=== PATIENT | female | born 1955 | race Caucasian/White ===

== ENCOUNTER → 2017-12-08 | Day surgery (SDC) | payer BC ==
[2017-12-03 12:51] VITALS: BMI 28.4
[~2017-12-08] MED LIST: ALPRAZolam 0.25 MG TAB PO PRN; ALPRAZolam 0.5 MG TAB PO PRN; ASPIRIN 325 MG TAB PO STA; ASPIRIN 81 MG PO SCH; ATORVASTATIN 80 MG TAB PO SCH; ATORVASTATIN 80 MG TAB PO STA; CHOLECALCIFEROL 1,000 UNIT TAB PO SCH; HEPARIN SODIUM 1,000 UN/ML (10ML VL) IV ONE; HEPARIN SODIUM 1,000 UN/ML (10ML VL) ONE; IOHEXOL 350 MG/ML 125ML BOTTLE INJ ONE; LIDOCAINE 2% INJ 20 MG/ML (20 ML MDV) ONE; LIDOCAINE 2% INJ 20 MG/ML SQ ONE; LOSARTAN-HCTZ 50-12.5 MG 1 EACH TAB PO SCH; NITROGLYCERIN 1000MCG/10ML SYRINGE INTRACORON ONE; NITROGLYCERIN SL TABS 0.4 MG TAB SUBLINGUAL PRN; NON-FORMULARY DRUG (Ubidecarenone [Co Q-10] 400 MG) PO SCH; RX INFO: IV CONTRAST WAS GIVEN 1 EACH MISC MISCELLANE PRN; SODIUM CHLORIDE 0.9% 1,000 ML IV SCH; SODIUM CHLORIDE 0.9% 1,000 ML in EMPTY BAG 1 BAG IV ONE; VERAPAMIL 2.5 MG/ML 2 ML AMP ONE; VERAPAMIL SYRINGE (5 MG/10 ML) INTRAARTER ONE; VITAMIN E (DL,TOCOPHERYL ACET) 400 UNIT CAP PO SCH; diphenhydrAMINE 50 MG/ML 1 ML VIAL IVP ONE; diphenhydrAMINE 50 MG/ML 1 ML VIAL ONE; fentaNYL (PF) 50 MCG/ML 2 ML AMP IV ONE; fentaNYL (PF) 50 MCG/ML 2 ML AMP ONE
[2017-12-08 07:18] LABS: Basophils # (A) 0.1 k/uL (0-0.2); Basophils % (A) 1 %; Eosinophils # (A) 0.3 k/uL (0-0.7); Eosinophils % (A) 6 %; HCT 42.3 % (34.0-46.0); Lymphocytes % (A) 34 %; MCHC 33.2 g/dL (31.0-37.0); MCV 87.3 fL (80.0-100.0); Monocytes # (A) 0.3 k/uL (0-1.0); Monocytes % (A) 5 %; Neutrophils % (A) 52 %; Platelet Count 201 k/uL (150-450); RBC 4.84 m/uL (3.80-5.40); RDW 12.5 % (11.5-15.5); WBC 5.8 k/uL (3.8-10.6)
[2017-12-08 07:19] VITALS: RESP 18
[2017-12-08 07:35] LABS: Potassium 3.8 mmol/L (3.5-5.1)
--- NOTE | 2017-12-08 08:29 | CC ---
CARDIAC CATHETERIZATION REPORT Ms. Vasquez is a 62-year-old female with a known history of coronary artery disease, history of hypertension, hyperlipidemia and a family history of coronary artery disease, who presented with symptoms of progressive chest discomfort radiating to the neck and dyspnea on exertion. In view of that, recommendation made regarding cardiac catheterization. The procedures, risks and complications were discussed with the patient who is in full understanding and agreement. PROCEDURE: Patient was brought to [facility] in a fasting semi-sedated state after receiving fentanyl and Benadryl and achieving moderate conscious sedated state. Using Xylocaine anesthesia and Seldinger technique, a 6-Congolese sheath was introduced in the right radial artery. Selective right and left coronary angiography performed using 5-Congolese 3.5 bend right and left Satnam catheter, multiple views of the coronary artery including hemiaxial were obtained. Following that, a 5-Congolese tight pigtail catheter was introduced into the left ventricle and a 30 degree VILLALOBOS view of the left ventricle was obtained. Following that, the catheter and sheath were removed. Hemostasis was obtained with deployment of a TR band. There was no immediate complication. Patient is returned to room in stable condition. Of note, the patient received 4500 units of intravenous heparin as well as intra-arterial verapamil. FINDINGS: 1. LEFT MAIN: This is a short-size vessel, bifurcating into left circumflex, left anterior descending artery, left main coronary artery is without any significant obstructive coronary artery disease. 2. LEFT ANTERIOR DESCENDING ARTERY: This is a large-sized vessel, reaching toward the apex with a wraparound apex segment, giving rise to three diagonal branches. The first and the third one are large in caliber. The left anterior descending artery proximally is mildly calcified. The mid-segment has a 30% to 40% plaque. The rest of the vessel has no high-grade stenosis. 3. LEFT CIRCUMFLEX: This is a nondominant vessel giving rise to two obtuse marginal branches. The second one is distal and larger. The left circumflex in mid-segment has intimal disease of 20% to 30% without any evidence of high-grade stenosis. 4. RIGHT CORONARY ARTERY: This is a dominant vessel, large in caliber, bifurcating distally into PDA and posterolateral segment and branches. The right coronary artery in the mid-segment has a 20% to 30% plaque. The rest of the vessel has no high-grade stenosis. 5. LEFT VENTRICULOGRAM: Left ventriculogram was performed in 30 degree VILLALOBOS view and revealed normal left ventricular size and systolic function, ejection fraction is 60%. There was no significant mitral regurgitation. 6. HEMODYNAMICS: There was no gradient across the aortic valve. The left ventricular end-diastolic pressure was 16 mmHg. CONCLUSION: 1. Mild to moderate triple-vessel coronary artery disease. 2. Normal left ventricular size and systolic function. RECOMMENDATION: In view of finding anatomy, I would recommend to continue medical therapy with aggressive risk-factor modifications being initiated. Those findings and recommendation were discussed with the patient and her family who are in fully understanding and agreement. DURATION OF THE PROCEDURE: 26 minutes. MMODL / IJN: [id number] /
--- NOTE | 2017-12-08 08:35 | LTR ---
DATE OF SERVICE: 12/08/2016 RE: PedroJaja bassett Dear Dr. Nguyen, I had the pleasure to perform cardiac catheterization on Mrs. Vasquez at [facility] on the 08 of December and a full copy of the procedure note will be forwarded to you. In brief, she was found to have [id number] coronary artery disease without any progression compared with the images obtained in 2014 and based on those findings, I would recommend to continue medical therapy with aggressive risk-factor modifications that she had initiated. Thank you again for allowing me to participate in this patient's care. Please feel free to call for any questions. Sincerely yours, MD LEE ANN Snell / MIRIAMN: [id number] /
[2017-12-08 08:55] VITALS: TEMP 97.6
[2017-12-08 13:56] VITALS: BP 121/67; PULSE 62
== END | disposition home or self-care (01) ==
LOC: CATHCVL 06:33
PROVIDERS: ATTEND Internal Medicine Interventional Cardiology
DX: I25.110 Atherosclerotic heart disease of native coronary artery with unstable angina pectoris (principal); I25.84 Coronary atherosclerosis due to calcified coronary lesion; I10 Essential (primary) hypertension; E78.2 Mixed hyperlipidemia; Z79.82 Long term (current) use of aspirin; Z79.899 Other long term (current) drug therapy; Z88.5 Allergy status to narcotic agent
CPT/HCPCS: 93458; 80051; 85025; C1894; C1769 ×2; J2001; J1200; J3010; J1644; Q9967

== ENCOUNTER → 2018-04-01 | Outpatient (CLI) | payer BC ==
--- NOTE | 2018-04-01 07:54 | MR ---
EXAMINATION TYPE: MR shoulder LT wo con DATE OF EXAM: 04/01/2018 COMPARISON: Outside left shoulder x-ray March 13, 2018 HISTORY: Pain in left shoulder per order. Pain with difficulty raising overhead for 6 months per zack ent. TECHNIQUE: Multiplanar, multisequence imaging of the left shoulder is performed without contrast. FINDINGS: Rotator Cuff: Supraspinatus and infraspinatus tendons are grossly intact to humeral head attachment. Subscapularis tendon appears intact. Acromioclavicular Joint: There is type II downsloping acromion. There is narrowing at acromioclavicul ar joint. Inferior fat plane however is maintained. Glenohumeral Joint: There is small joint effusion. No significant spurring is seen. Labrum: The labrum appears grossly intact given limitation of non-arthrogram study. Biceps Tendon: The long head of biceps is in normal location within bicipital groove. Bone marrow signal: No focal abnormal marrow signal is appreciated. Other: Mild to moderate fluid signal subdeltoid/subacromial bursa is noted. IMPRESSION: No rotator cuff or labral tear is seen. Type II downsloping acromion may be causing some underlying impingement with mild to moderate subdeltoid/subacromial bursitis present.
== END ==
LOC: RADMRIMAIN 07:06
PROVIDERS: ATTEND Orthopaedic Surgery
DX: M25.512 Pain in left shoulder (principal)

== ENCOUNTER → 2018-07-07 | Outpatient (CLI) | payer BC ==
[2018-07-07 09:57] LABS: Basophils # (A) 0.1 k/uL (0-0.2); Basophils % (A) 1 %; Eosinophils # (A) 0.4 k/uL (0-0.7); Eosinophils % (A) 6 %; HCT 45.1 % (34.0-46.0); Lymphocytes # (A) 1.7 k/uL (1.0-4.8); Lymphocytes % (A) 29 %; MCH 30.3 pg (25.0-35.0); MCHC 33.3 g/dL (31.0-37.0); MCV 90.9 fL (80.0-100.0); Monocytes # (A) 0.3 k/uL (0-1.0); Monocytes % (A) 4 %; Neutrophils # (A) 3.4 k/uL (1.3-7.7); Neutrophils % (A) 57 %; Platelet Count 205 k/uL (150-450); RBC 4.96 m/uL (3.80-5.40); RDW 12.9 % (11.5-15.5); WBC 5.9 k/uL (3.8-10.6)
[2018-07-07 10:24] LABS: Potassium 4.4 mmol/L (3.5-5.1)
== END ==
LOC: LABPAT 09:11
PROVIDERS: ATTEND Orthopaedic Surgery
DX: Z01.818 Encounter for other preprocedural examination (principal); Z01.812 Encounter for preprocedural laboratory examination; M77.52 Other enthesopathy of left foot and ankle
CPT/HCPCS: 80051; 85025; 93005

== ENCOUNTER → 2018-07-22 | Day surgery (SDC) | payer BC ==
[2018-07-16 11:54] VITALS: BMI 25.4
--- NOTE | 2018-07-21 14:56 | HP ---
HISTORY AND PHYSICAL DATE OF SERVICE: 07/22/2018 Jaja Vasquez is a 63-year-old patient seen with progressive left shoulder pain. Treatment options were discussed with post left shoulder arthroscopy. Consent was obtained her. PAST MEDICAL HISTORY: Asthma, hypercholesterolemia, hypertension. PAST SURGICAL HISTORY: Colonoscopy, foot surgery, hysterectomy. MEDICATIONS: Crestor, losartan, Ventolin inhaler, Breo Ellipta inhaler. ALLERGIES: None reported. SOCIAL HISTORY: Patient denies current tobacco use. PHYSICAL EVALUATION OF THE LEFT SHOULDER: Flexion is 150 degrees, abduction is 130 degrees, external rotation is 50 degrees with weakness. There is tenderness along the anterior lateral acromion rotator cuff insertion site. Impingement sign is positive at 90 degrees. Distal neurovascular exam is intact. RADIOGRAPHS OF THE LEFT SHOULDER: Revealed a type 2 anterior acromion, acromioclavicular joint osteoarthritis and cystic changes of the tuberosity. The left shoulder MRI revealed impingement as well as bursitis. IMPRESSION: 1. Left shoulder impingement with possible rotator cuff tear. 2. Left shoulder acromioclavicular joint osteoarthritis. PLAN: Left shoulder arthroscopy with subacromial decompression, possible arthroscopic rotator cuff repair, possible Dominic procedure and debridement. MMODL / IJN: [id number] /
[~2018-07-22] MED LIST changes: -ALPRAZolam 0.25 MG TAB PO PRN; -ALPRAZolam 0.5 MG TAB PO PRN; -ASPIRIN 325 MG TAB PO STA; -ASPIRIN 81 MG PO SCH; -ATORVASTATIN 80 MG TAB PO SCH; -ATORVASTATIN 80 MG TAB PO STA; -CHOLECALCIFEROL 1,000 UNIT TAB PO SCH; +CITRIC ACID-SODIUM CITRATE 15 ML CUP PO ONE; +DEXAMETHASONE SOD PHOSPHATE 10 MG/ML 1 ML VIAL IV ONE; +GLYCOPYRROLATE 0.2 MG/ML 2 ML VIAL ONE; -HEPARIN SODIUM 1,000 UN/ML (10ML VL) IV ONE; -HEPARIN SODIUM 1,000 UN/ML (10ML VL) ONE; -IOHEXOL 350 MG/ML 125ML BOTTLE INJ ONE; +LACTATED RINGERS 1,000 ML IV ONE; +LACTATED RINGERS 1,000 ML IV SCH; +LIDOCAINE 1% 20 ML VIAL (10MG/ML) FOR IV START INTRADERMA ONE; +LIDOCAINE 1% INJ 10MG/ML (20 ML MDV) ONE; -LIDOCAINE 2% INJ 20 MG/ML (20 ML MDV) ONE; -LIDOCAINE 2% INJ 20 MG/ML SQ ONE; -LOSARTAN-HCTZ 50-12.5 MG 1 EACH TAB PO SCH; +MIDAZOLAM 2 MG/2 ML VIAL IV PRN; +MIDAZOLAM 2 MG/2 ML VIAL ONE; +NEOSTIGMINE 1 MG/ML 10 ML VIAL ONE; -NITROGLYCERIN 1000MCG/10ML SYRINGE INTRACORON ONE; -NITROGLYCERIN SL TABS 0.4 MG TAB SUBLINGUAL PRN; -NON-FORMULARY DRUG (Ubidecarenone [Co Q-10] 400 MG) PO SCH; +ONDANSETRON 4 MG/2 ML VIAL IVP ONE; +ONDANSETRON 4 MG/2 ML VIAL IVP PRN; +PROPOFOL 10 MG/ML 20 ML VIAL IV ONE; +ROCURONIUM BROMIDE 10 MG/ML 10 ML VIAL IV ONE; +ROPIVACAINE 5 MG/ML 30 ML VIAL ONE; -RX INFO: IV CONTRAST WAS GIVEN 1 EACH MISC MISCELLANE PRN; -SODIUM CHLORIDE 0.9% 1,000 ML IV SCH; -SODIUM CHLORIDE 0.9% 1,000 ML in EMPTY BAG 1 BAG IV ONE; -VERAPAMIL 2.5 MG/ML 2 ML AMP ONE; -VERAPAMIL SYRINGE (5 MG/10 ML) INTRAARTER ONE; -VITAMIN E (DL,TOCOPHERYL ACET) 400 UNIT CAP PO SCH; +ceFAZolin IN SWFI 2 GM/20 ML SYRINGE IVP ONE; -diphenhydrAMINE 50 MG/ML 1 ML VIAL IVP ONE; -diphenhydrAMINE 50 MG/ML 1 ML VIAL ONE; -fentaNYL (PF) 50 MCG/ML 2 ML AMP IV ONE; +fentaNYL (PF) 50 MCG/ML 2 ML AMP IV PRN
--- NOTE | 2018-07-22 10:55 | P.ONQ ---
Anesthesiology Proc Note - PNB - Peripheral Nerve Block Performed Left Interscalene Single Time Out Performed: Yes Procedure Start Time: :30 Procedure Stop Time: :45 Indication: Acute Post-Operative Pain, Requested by physician Sedation Type: Sedate with meaningful contact maintained Preparation: Sterile Prep Position: Supine Catheter: None Needle Size: 50mm (2") Needle Gauge: 21 Technique: Ultrasound Injectate: 0.5% Ropivacaine (see comment for volume) Blood Aspirated: No Pain Paresthesia on Injection Noted: No Resistance on Injection: Normal Events: Uneventful and Well Tolerated (Ropivicaine 0.5% solution totalling 30ml with frequent aspiration. Uneventful)
[2018-07-22 11:57] VITALS: RESP 16; TEMP 97.1
--- NOTE | 2018-07-22 11:59 | P.OP ---
Date of Procedure: 07/22/18 Preoperative Diagnosis: Left shoulder impingement Postoperative Diagnosis: 1. Left shoulder rotator cuff tear 2. Left shoulder impingement 3. Left shoulder partial long head biceps tendon tear 4. Left shoulder labral tear Procedure(s) Performed: 1. Left shoulder arthroscopic rotator cuff repair 2. Left shoulder arthroscopic subacromial decompression 3. Left shoulder arthroscopic biceps tenotomy 4. Left shoulder arthroscopic debridement labral tear Implants: 15.5 Arthrex swivel lock anchor Anesthesia: GETA, regional (Interscalene block) Surgeon: Tony Doan Yarn Inspector #1: Mike Dailey Estimated Blood Loss (ml): 10 Pathology: none sent Condition: stable Disposition: PACU Indications for Procedure: 63-year-old patient seen with progressive left shoulder pain. After having treatment options discussed, she elected to proceed with arthroscopy. Operative Findings: See description of procedure Description of Procedure: Patient underwent an interscalene block by department of anesthesia for postoperative pain control. The patient was then taken to the operative suite. The patient underwent a general anesthetic by the department of anesthesia. The patient was placed into a lateral position and secured. There was appropriate padding of the bony prominence. Left shoulder was then prepped and draped in normal sterile orthopedic fashion. We placed the extremity in 10 pounds of longitudinal traction. A posterior incision was now made for a posterior working portal site. The trocar and cannula were inserted into the glenohumeral joint. Arthroscopy was initiated. Spinal needle was now inserted anteriorly, to ascertain the anterior working portal site. An incision was now made in that area, a trocar was inserted followed by a probe. There was superficial tearing noted at the superior and anterior labrum. There was partial tearing and hyperemia of the long head biceps tendon. There were mild grade 1 chondromalacia changes with no osteochondral tears present. No loose bodies were identified. I performed an arthroscopic biceps tenotomy. I debrided the superficial labral tears down to stable tissue. Residual labrum was found to be stable. The superior anchor was stable. Instruments now removed from the glenohumeral joint. Utilizing the posterior working portal site, the trocar and cannula were inserted into the subacromial space. Arthroscopy initiated. I made an incision 2 fingerbreadths lateral to the acromion. I introduced my trocar followed by my ArthroCare ablator. I now began ablating thick subacromial bursal tissue, which exposed the undersurface of the anterior acromion. There was diminished subacromial space. There was a very prominent anterior acromion. A motorized bur was introduced and a subacromial decompression was performed. I also excised some osteophytes off the inferior aspect of the distal clavicle. The AC joint was visualized and noted to be moderately arthritic. I did not feel it was enough to necessitate a Dominic procedure. I now turned my attention to the rotator cuff tendon. There was significant fraying noted along the posterior aspect distal super SMAS. Upon thorough probing off on an through and through perforation. I debrided the edges getting down to stable tendon tissue. We had a 1.5 cm defect or tear. I abraded the footprint with a motorized bur. I passed 3 everted mattress sutures through good bites of rotator cuff tendon. I now held the punch in the appropriate position along the footprint area and Eliud RAY tapped down with a mallet. All 6 limbs of suture were now passed through a 5.5 Arthrex anchor. The Arthrex anchor was now introduced into the tip of the prepunched hole. Eliud RAY tension all the appropriate sutures while I held the camera and anchor in position. He then introduced and anchor into our pre-punch hole while the camera and anchor sleeve in position. There appeared to be good compression of the tendon on the footprint. Suture limbs were clipped. The repair was probed and found to be stable. I injected 1 mL Renue intra-articular. All instruments were now removed from the portal sites. All portal sites were approximated with nylon suture. Sterile dressings were applied followed by a shoulder sling. Mike RAY assisted in this complex case. The patient was awakened, transferred to a bed, and taken to recovery in stable condition.
[2018-07-22 13:01] VITALS: BP 124/58; PULSE 70
== END | disposition home or self-care (01) ==
LOC: OR 07:34
PROVIDERS: ATTEND Orthopaedic Surgery
DX: M75.102 Unspecified rotator cuff tear or rupture of left shoulder, not specified as traumatic (principal); M75.42 Impingement syndrome of left shoulder; S46.112A Strain of muscle, fascia and tendon of long head of biceps, left arm, initial encounter; S43.432A Superior glenoid labrum lesion of left shoulder, initial encounter; X58.XXXA Exposure to other specified factors, initial encounter; M94.212 Chondromalacia, left shoulder; J45.909 Unspecified asthma, uncomplicated; E78.00 Pure hypercholesterolemia, unspecified; I10 Essential (primary) hypertension; Z79.82 Long term (current) use of aspirin; Z79.899 Other long term (current) drug therapy; Z88.5 Allergy status to narcotic agent
CPT/HCPCS: 64415; 29826; 29827; C1713; C1765; J2250; J1100; J2710; J2405; J2001; J3010; J2795; J2704; J0690

== ENCOUNTER → 2019-09-01 | Outpatient (CLI) | payer MEDICARE ==
[2019-09-01 14:24] LABS: African American GFR (CKD) >90 (>60 ml/min/1.73 sqM); Blood Urea Nitrogen 28 mg/dL (7-17)
--- NOTE | 2019-09-01 15:35 | CT ---
EXAMINATION TYPE: CT urogram wo/w con DATE OF EXAM: 09/01/2019 HISTORY: incontinence, microscopic hematuria CT DLP: 2080.6mGycm Automated Exposure Control for Dose Reduction was Utilized. CONTRAST: CT scan of the abdomen and pelvis is performed without and with IV Contrast, patient injected with 10 0 mL of Isovue 300. COMPARISON: None FINDINGS: There is a small hiatal hernia present. LUNG BASES: No significant abnormality is appreciated. LIVER/GB: Liver shows low attenuation and is borderline enlarged, gallbladder is normal PANCREAS: No significant abnormality is seen. SPLEEN: No significant abnormality is seen. ADRENALS: No significant abnormality is seen. KIDNEYS: There are cortical cysts associated with the kidneys. Punctate calcifications are present at the lower pole the left kidney, there may be some localized scarring at this level, focal cortical d efect is present. The ureters show normal course and caliber. BOWEL: No significant abnormality is seen. UTERUS/ADNEXA: Uterus and adnexal structures are not seen. LYMPH NODES: No greater than 1cm abdominal or pelvic lymph nodes are appreciated. OSSEOUS STRUCTURES: No significant abnormality is seen. OTHER: No significant additional abnormality is seen. IMPRESSION: Suspect some scarring at the lower pole left kidney, punctate calcifications could repres ent nonobstructive calculi, there are bilateral cortical cysts. Hepatomegaly, hepatic steatosis.
== END | disposition home or self-care (01) ==
LOC: RADCTMAIN 13:46
PROVIDERS: ATTEND Urology
DX: K76.0 Fatty (change of) liver, not elsewhere classified (principal); R31.0 Gross hematuria
CPT/HCPCS: 82565; 84520; 74178; 36415; 74400; Q9967

== ENCOUNTER 2023-05-02 12:39 | Day surgery (SDC) | payer MEDICARE ==
[2023-05-01 10:18] VITALS: BMI 30.4
[2023-05-02] MEDS ORDERED: LACTATED RINGERS 1,000 ML IV SCH (13:14)
[2023-05-02 13:39] VITALS: TEMP 97
[2023-05-02] MEDS ORDERED: PROPOFOL 10 MG/ML 20 ML VIAL IV ONE (14:44)
--- NOTE | 2023-05-02 15:07 | P.PCN ---
Date of Procedure: 05/02/23 Procedure(s) Performed: BRIEF HISTORY: Patient is a 68-year-old pleasant white female scheduled for an elective colonoscopy as a part of evaluation of right lower quadrant abdominal pain for the last 7 months duration. PROCEDURE PERFORMED: Colonoscopy. PREOPERATIVE DIAGNOSIS: Right lower quadrant abdominal pain of several months duration. IV sedation per Anesthesia. PROCEDURE: After informed consent was obtained, the patient, was brought into the endoscopy unit. IV sedation was administered by Anesthesia under continuous monitoring. Digital rectal examination was normal. Initially the Olympus CF-160 flexible video colonoscope was then inserted in the rectum, gradually advanced into the cecum without any difficulty. Careful examination was performed as the scope was gradually being withdrawn. Ileocecal valve and the appendiceal orifice were visualized and appeared normal. Prep was excellent. Mucosa of the cecum, ascending colon, transverse colon, descending colon, sigmoid colon, and rectum appeared normal. Retroflexion was performed in the rectum and no lesions were seen. The patient tolerated the procedure well. IMPRESSION: Normal-appearing colon from rectum to cecum no evidence of colorectal neoplasia. RECOMMENDATIONS: Findings of this examination were discussed with the patient as well as a family. She was advised to have a repeat screening colonoscopy in 10 years..
[2023-05-02 15:12] VITALS: RESP 15
[2023-05-02 15:34] VITALS: BP 146/79; PULSE 55
== END 2023-05-02 16:05 | disposition home or self-care (01) ==
LOC: ORWHC2ENDO 12:39
PROVIDERS: ATTEND Internal Medicine Gastroenterology
DX: R10.31 Right lower quadrant pain (principal); I10 Essential (primary) hypertension; E78.5 Hyperlipidemia, unspecified; J45.909 Unspecified asthma, uncomplicated; K21.9 Gastro-esophageal reflux disease without esophagitis; Z79.82 Long term (current) use of aspirin; Z79.899 Other long term (current) drug therapy
CPT/HCPCS: 45378; J2704

== ENCOUNTER → 2023-05-12 | Outpatient (CLI) | payer MEDICARE ==
--- NOTE | 2023-05-17 08:54 | MR ---
EXAMINATION TYPE: MR knee LT wo con DATE OF EXAM: 05/12/2023 COMPARISON: None HISTORY: Sudden onset left knee pain, started 2 mos ago. TECHNIQUE: Multiplanar, multisequence imaging of the knee is performed without IV contrast. Findings: There is no bone contusion or fracture. There is mild to moderate osteoarthritic change of the medial and lateral compartment knee were there is mild thinning of the articular cartilages and mild marginal hypertrophic spurring. There are mild subchondral cysts in the medial aspect of the tibial plateau and in the medial femoral condyle. There is a tear of the posterior horn medial meniscus and a small meniscal cyst. Stsqp-dh-[id number] joint effusion there is a multiloculated small Bowles's cyst. The medial and lateral collateral ligaments and cruciate ligaments are intact. IMPRESSION: 1. Tear of the posterior horn meniscus with a small meniscal cyst. 2. Xxfp-ap-xrlnivar joint effusion and multilocular Bowles's cyst. 3. Mild to moderate osteoarthritic change of the medial lateral compartment of the knee. 4. No ligamentous injury.
== END | disposition home or self-care (01) ==
LOC: RADMRIMAIN 10:49
PROVIDERS: ATTEND Orthopaedic Surgery
DX: S83.242A Other tear of medial meniscus, current injury, left knee, initial encounter (principal); M17.12 Unilateral primary osteoarthritis, left knee; M71.22 Synovial cyst of popliteal space [Baker], left knee; M25.462 Effusion, left knee; X58.XXXA Exposure to other specified factors, initial encounter

== ENCOUNTER → 2023-05-23 | Outpatient (CLI) | payer MEDICARE ==
[2023-05-23 16:11] LABS: Basophils # (A) 0.06 X 10*3/uL (0.00-0.10); Basophils % (A) 1.1 %; Eosinophils # (A) 0.26 X 10*3/uL (0.04-0.35); Eosinophils % (A) 4.7 %; HCT 42.9 % (37.2-46.3); Lymphocytes # (A) 1.69 X 10*3/uL (0.90-5.00); Lymphocytes % (A) 30.4 %; MCH 29.4 pg (27.0-32.0); MCHC 32.6 d/dL (32.0-37.0); MCV 89.9 FL (80.0-97.0); Mean Platelet Volume 10.4 FL (9.5-12.2); Monocytes # (A) 0.42 X 10*3/uL (0.20-1.00); Monocytes % (A) 7.6 %; NRBC Per 100 WBC 0 X 10*3/uL (0.00-0.01); Neutrophils # (A) 3.11 X 10*3/uL (1.80-7.70); Neutrophils % (A) 55.8 %; Platelet Count 190 X 10*3/uL (140-440); RBC 4.77 X 10*6/uL (4.10-5.20); RDW 12.9 % (11.5-14.5); WBC 5.56 X 10*3/uL (4.50-10.00)
[2023-05-23 17:16] LABS: Anion Gap 11.4 mmol/L (4.00-12.00); Carbon Dioxide 25.6 mmol/L (21.6-31.8); Potassium 4.1 mmol/L (3.5-5.5)
[2023-05-25 20:26] LABS: ALT 26 U/L (8-44); AST 29 U/L (13-35); Chol/HDL Ratio 3.15 Ratio; LDL Cholesterol,Calculated 104.5 mg/dL (0.0-131.0)
== END | disposition home or self-care (01) ==
LOC: LABWHC1 09:46
PROVIDERS: ATTEND Orthopaedic Surgery
DX: Z01.812 Encounter for preprocedural laboratory examination (principal); M23.92 Unspecified internal derangement of left knee; R00.1 Bradycardia, unspecified; R94.31 Abnormal electrocardiogram [ECG] [EKG]
CPT/HCPCS: 36415; 80051; 80061; 84450; 84460; 85025; 93005

== ENCOUNTER 2023-06-12 08:46 | Day surgery (SDC) | payer MEDICARE ==
[2023-06-03 14:09] VITALS: BMI 29.2
--- NOTE | 2023-06-12 07:39 | HP ---
HISTORY AND PHYSICAL DATE OF SURGERY: 06/12/2023. HISTORY OF PRESENT ILLNESS: Jaja Vasquez is a 68-year-old patient, seen with progressive left knee pain. We discussed options. She elected to proceed with left knee arthroscopy. Consent was obtained. PAST MEDICAL HISTORY: Hypertension, hyperlipidemia, and asthma. PAST SURGICAL HISTORY: Colonoscopy, foot surgery, and hysterectomy. DAILY MEDICATIONS: 1. Albuterol inhaler. 2. Metoprolol. 3. Omeprazole. 4. Rosuvastatin. 5. Aspirin. ALLERGIES: None. SOCIAL HISTORY: She denies current tobacco use. PHYSICAL EVALUATION OF THE LEFT KNEE: Range of motion is 0 to 130 degrees. Mild effusion. Tenderness, medial joint line. Positive medial Dang's. Ligaments are stable. Hip rotation is without pain. Distal neurovascular exam is intact. IMAGING STUDIES: Radiographs of the left knee revealed some mild osteoarthritic changes. MRI left knee revealed medial meniscal tear, meniscal cyst, effusion, and Bowles cyst. IMPRESSION: 1. Internal derangement of left knee with medial meniscal tear. 2. Hypertension. 3. Hyperlipidemia. 4. Asthma. PLAN: Left knee arthroscopy with partial medial meniscectomy and debridement. MMODL / IJN: [id number] /
[~2023-06-12 08:46] MED LIST changes: -CITRIC ACID-SODIUM CITRATE 15 ML CUP PO ONE; -DEXAMETHASONE SOD PHOSPHATE 10 MG/ML 1 ML VIAL IV ONE; +DEXAMETHASONE SOD PHOSPHATE 4 MG/ML 1 ML VIAL IV ONE; -GLYCOPYRROLATE 0.2 MG/ML 2 ML VIAL ONE; +HYDROmorphone 0.5 MG/0.5 ML SYRINGE IVP PRN; -LACTATED RINGERS 1,000 ML IV ONE; +LIDOCAINE 1% (10MG/ML) FOR IV START INTRADERMA PRN; -LIDOCAINE 1% 20 ML VIAL (10MG/ML) FOR IV START INTRADERMA ONE; -LIDOCAINE 1% INJ 10MG/ML (20 ML MDV) ONE; -MIDAZOLAM 2 MG/2 ML VIAL ONE; -NEOSTIGMINE 1 MG/ML 10 ML VIAL ONE; -ONDANSETRON 4 MG/2 ML VIAL IVP PRN; -PROPOFOL 10 MG/ML 20 ML VIAL IV ONE; -ROCURONIUM BROMIDE 10 MG/ML 10 ML VIAL IV ONE; -ROPIVACAINE 5 MG/ML 30 ML VIAL ONE; -ceFAZolin IN SWFI 2 GM/20 ML SYRINGE IVP ONE; -fentaNYL (PF) 50 MCG/ML 2 ML AMP IV PRN; -fentaNYL (PF) 50 MCG/ML 2 ML AMP ONE
[2023-06-12] MEDS ORDERED: PROPOFOL 10 MG/ML 20 ML VIAL IV ONE (10:03)
[2023-06-12] MEDS ORDERED: LIDOCAINE 2% INJ 20 MG/ML (2 ML VIAL) ONE (10:03)
[2023-06-12] MEDS ORDERED: LIDOCAINE 4% LTA KIT (4 ML) TOPICAL ONE (10:03)
[2023-06-12] MEDS ORDERED: MIDAZOLAM 2 MG/2 ML VIAL ONE (10:03)
[2023-06-12] MEDS ORDERED: SUCCINYLCHOLINE CHLORIDE 200 MG/10 ML VIAL IV ONE (10:03)
[2023-06-12] MEDS ORDERED: KETOROLAC 15 MG/ML 1 ML VIAL ONE (10:03)
[2023-06-12] MEDS ORDERED: ACETAMINOPHEN IV (For NPO) 1,000 MG/100 ML VIAL ONE (10:03)
[2023-06-12] MEDS ORDERED: BUPIVACAINE (PF) 0.25% 10 ML VIAL MISCELLANE ONE ×2 (10:08→10:45)
--- NOTE | 2023-06-12 11:03 | P.OP ---
Date of Procedure: 06/12/23 Preoperative Diagnosis: Internal derangement left knee Postoperative Diagnosis: 1. Tear medial and lateral meniscus left knee 2. 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 Reactive synovitis medial, lateral and suprapatellar compartments left knee 4. Grade 2/3 chondromalacia medial femoral condyle left knee Procedure(s) Performed: 1. Arthroscopic partial medial and lateral meniscectomy left knee 2. Arthroscopic microfracture medial tibial plateau left knee 3. Arthroscopic partial synovectomy medial, lateral and suprapatellar compartments left knee 4. Arthroscopic chondroplasty medial femoral condyle left knee Anesthesia: ROSALIOA, local Surgeon: Tony Doan Estimated Blood Loss (ml): 8 Pathology: none sent Condition: stable Disposition: PACU Indications for Procedure: 68-year-old patient seen with progressive left knee pain. After having sophia tment options discussed, she elected to proceed with arthroscopy. Operative Findings: See description of procedure Description of Procedure: Patient was taken to the operative suite. Patient underwent a general anesthetic by the department of anesthesia. Patient was given preoperative antibiotics. The left lower extremity was placed in a well-padded arthroscopic leg cooper. The left leg was prepped and draped in the normal sterile orthopedic fashion. A lateral parapatellar and suprapatellar incision was made. Trochars were inserted. Arthroscopy was initiated. Suprapatellar pouch revealed diffuse thick reactive synovitis. The patellofemoral joint appeared to articulate congruently. There was grade 1/2 chondromalacia of the patell ofemoral joint without significant osteochondral tears. The scope was guided into the medial gutter. No loose bodies or plica were identified. The scope was then guided into the medial compartment. A medial parapatellar incision was made. Trocar inserted followed by probe. There was a complex tear involving the posterior horn medial meniscus. There were grade 2/3 chondromalacia changes of medial femoral condyle with some osteochondral flap tears. There were grade 3/4 chondromalacia changes of the medial tibial plateau. There was thick reactive synovitis anteriorly. I performed a partial medial meniscectomy getting down to stable meniscal tissue. I performed a chondroplasty of the medial femoral condyle getting down to stable osteochondral tissue. I performed a partial synovectomy decompressing reactive synovitis. I did note an area of exposed bone along the medial tibial plateau measuring just under a centimeter diameter. I introduced a microfracture awl and I performed a microfracture to the area of exposed bone medial tibial plateau penetrating the bone with resultant bleeding at the microfracture site. The residual meniscus was probed and was found to be stable. There was good decompression of the synovitis. The residual osteochondral surface of the femoral condyle and tibial plateau were stable. Scope and probe were then guided into the intercondylar notch. Cruciates were identified, probed and found to be stable. The scope and probe were then guided into lateral compartment. There was a radial tear involving the posterior horn lateral meniscus. There were some grade 2 chondromalacia changes of the lateral compartment without significant osteochondral tears. There was some thick reactive synovitis anteriorly. I performed a partial lateral meniscectomy getting down to stable meniscal tissue. I performed a partial synovectomy decompressing the reactive synovitis. The residual meniscus was probed and was found to be stable. There was good decompression of the synovitis. The scope was in guided back into the suprapatellar compartment. I introduced a motorized shaver into the suprapatellar compartment. I performed a partial synovectomy. The shaver was removed. There was good decompression of the synovitis. I took one more look around the entire knee, no residual debris. Instruments were now removed from the joint. The joint was infiltrated with .25% Marcaine. Steri-Strips were applied to the portal sites. Sterile dressings were applied. The patient was placed into a GIANLUCA hose. No tourniquet was utilized. The patient was awakened, transferred to a bed and taken to recovery stable satisfactory condition.
[2023-06-12 11:11] VITALS: TEMP 96.8
[2023-06-12 12:39] VITALS: BP 151/67; PULSE 61; RESP 18
== END 2023-06-12 12:43 | disposition home or self-care (01) ==
LOC: OR 08:46
PROVIDERS: ATTEND Orthopaedic Surgery
DX: S83.282A Other tear of lateral meniscus, current injury, left knee, initial encounter (principal); S83.232A Complex tear of medial meniscus, current injury, left knee, initial encounter; M65.162 Other infective (teno)synovitis, left knee; M22.42 Chondromalacia patellae, left knee; I10 Essential (primary) hypertension; I25.10 Atherosclerotic heart disease of native coronary artery without angina pectoris; E78.5 Hyperlipidemia, unspecified; J45.909 Unspecified asthma, uncomplicated; K21.9 Gastro-esophageal reflux disease without esophagitis; Z86.010 Personal history of colon polyps; Z90.710 Acquired absence of both cervix and uterus; Z79.51 Long term (current) use of inhaled steroids; Z79.82 Long term (current) use of aspirin; Z79.899 Other long term (current) drug therapy; Z88.6 Allergy status to analgesic agent; Z88.5 Allergy status to narcotic agent; X58.XXXA Exposure to other specified factors, initial encounter
CPT/HCPCS: 29879; 29880; J2250; J0330; J1100; J0690; J2405; J0131; J1885; J2704; J2001; J0665

== ENCOUNTER → 2023-11-03 | Outpatient (CLI) | payer MEDICARE ==
[2023-11-03 16:01] LABS: Basophils # (A) 0.09 X 10*3/uL (0.00-0.10); Basophils % (A) 1.4 %; Eosinophils # (A) 0.32 X 10*3/uL (0.04-0.35); Eosinophils % (A) 5.1 %; HCT 42.2 % (37.2-46.3); HGB 13.9 g/dL (12.0-15.0); Lymphocytes # (A) 2.12 X 10*3/uL (0.90-5.00); Lymphocytes % (A) 33.5 %; MCH 29.1 pg (27.0-32.0); MCHC 32.9 g/dL (32.0-37.0); MCV 88.5 FL (80.0-97.0); Mean Platelet Volume 10.1 FL (9.5-12.2); Monocytes # (A) 0.48 X 10*3/uL (0.20-1.00); Monocytes % (A) 7.6 %; NRBC Per 100 WBC 0 X 10*3/uL (0.00-0.01); Neutrophils # (A) 3.29 X 10*3/uL (1.80-7.70); Neutrophils % (A) 52.1 %; Platelet Count 197 X 10*3/uL (140-440); RBC 4.77 X 10*6/uL (4.10-5.20); RDW 12.9 % (11.5-14.5); WBC 6.32 X 10*3/uL (4.50-10.00)
[2023-11-03 16:27] LABS: Blood Urea Nitrogen 12.3 mg/dL (9.0-27.0); Calcium 9.7 mg/dL (8.7-10.3); Chloride 99 mmol/L (96-109); Glucose 101 mg/dL (70-110); Potassium 3.9 mmol/L (3.5-5.5); Sodium 137 mmol/L (135-145)
[2023-11-04 13:53] LABS: Appearance,Urine Clear (Clear); Bilirubin,Urine Negative (Negative); Blood,Urine Negative (Negative); Color,Urine Colorless; Glucose,Urine (UA) Negative (Negative); Ketones,Urine Negative (Negative); Leukocyte Esterase,Urine Negative (Negative); Nitrite,Urine Negative (Negative); Protein,Urine Negative (Negative); Specific Gravity,Urine 1.005 (1.001-1.035); Urobilinogen,Urine <2.0 mg/dL (<2.0)
== END | disposition home or self-care (01) ==
LOC: LABPAT 09:36
PROVIDERS: ATTEND Urology
DX: Z01.812 Encounter for preprocedural laboratory examination (principal); N20.0 Calculus of kidney
CPT/HCPCS: 80048; 81003; 85025; 87077; 87086; 87186

== ENCOUNTER 2023-11-11 06:54 | Day surgery (SDC) | payer MEDICARE ==
--- NOTE | 2023-11-11 07:16 | XR ---
EXAMINATION TYPE: XR KUB DATE OF EXAM: 11/11/2023 7:04 AM CLINICAL INDICATION:Female, 68 years old with history of calculus; [facility] COMPARISON: None. TECHNIQUE: One radiographic view of the abdomen was obtained. FINDINGS: The bowel gas pattern is nonspecific without dilated loops of small or large bowel. There i s no evidence for organomegaly or pneumoperitoneum. The osseous structures are intact. No abnormal calcifications are present. Fecal material and gas are demonstrated throughout the colon and rectum. Multilevel degeneration changes throughout the spine. IMPRESSION: 1. No renal calculi definitively visualized, bowel obscures evaluation 2. Nonspecific bowel gas pattern without radiographic evidence for acute process.
[2023-11-11] MEDS ORDERED: DEXAMETHASONE SOD PHOSPHATE 4 MG/ML 1 ML VIAL IV ONE (07:39)
[2023-11-11] MEDS ORDERED: HYDROmorphone 0.5 MG/0.5 ML SYRINGE IVP PRN (07:39)
[2023-11-11] MEDS ORDERED: LACTATED RINGERS 1,000 ML IV SCH (07:39)
[2023-11-11] MEDS ORDERED: ONDANSETRON 4 MG/2 ML VIAL IVP PRN (07:39)
[2023-11-11] MEDS ORDERED: LIDOCAINE 1% (10MG/ML) FOR IV START INTRADERMA PRN (07:39)
[2023-11-11 08:16] VITALS: TEMP 97.3
--- NOTE | 2023-11-11 08:31 | P.HPIHPCON ---
History of Present Illness H&P Date: 11/11/23 Chief Complaint: Renal stone This is a 68-year-old female history of left flank pain. Underwent a CT abdomen and pelvis that showed evidence of a 3 mm left-sided renal stone. Discussed the images with her discussed the stone is nonobstructive and there is potential this is not the cause of her pain, of note there is no other etiology to explain her pain. Discussed with her the option of stone removal, stone is radiolucent. Discussed option of left-sided ureteroscopy with holmium laser. Discussed the risk which includes but not limited to bleeding, infection, injury to ureter. Discussed potential that she might have persistent pain even stone removal. She understood all the risk and agreed to proceed Consent for Procedure: I have explained the operation/procedure to the patient, including the risks, benefits, side effects, alternative therapies (including not receiving the proposed treatment or service), the likelihood of the patient achieving his/her goals, and potential recuperation problems for the procedure/sedation/analgesia, as well as any blood products, if indicated. I also explained to the patient the risks, benefits and side effects of the alternatives, as well as the risks related to not receiving the proposed procedure, care, treatment, or services. Past Medical History Past Medical History: Asthma, GERD/Reflux, Hyperlipidemia, Hypertension Additional Past Medical History / Comment(s): HX HEMORRHOIDS, HX VERTIGO, SEASONAL ALLERGIES History of Any Multi-Drug Resistant Organisms: None Reported Past Surgical History: Breast Surgery, Heart Catheterization, Hysterectomy, Orthopedic Surgery Additional Past Surgical History / Comment(s): BENIGN BREAST BX. COLONOSCOPY X 2. LT SHOULDER SX. BILAT BUNIONECTOMY, L knee meniscus surgery. Past Anesthesia/Blood Transfusion Reactions: Motion Sickness, Postoperative Nausea & Vomiting (PONV) Additional Past Anesthesia/Blood Transfusion Reaction / Comment(s): Pt states she has severe N/V with all narcotics. Smoking Status: Former smoker - Past Family History Sister(s) Family Medical History: Coronary Artery Disease (CAD) Additional Family Medical History / Comment(s): VALVE DISORDER. HEART MURMUR Brother(s) Family Medical History: Coronary Artery Disease (CAD), Myocardial Infarction (SC) Additional Family Medical History / Comment(s): BROTHER OF SC Mother Family Medical History: Congestive Heart Failure (CHF) Father Family Medical History: Cancer Additional Family Medical History / Comment(s): BRAIN Medications and Allergies Home Medications Medication Instructions Recorded Confirmed Type Aspirin 81 mg PO QAM 11/23/14 11/11/23 History Cholecalciferol [Vitamin D3 (25 2,000 unit PO QAM 12/03/17 11/11/23 History Mcg = 1000 Iu)] Rosuvastatin Calcium [Crestor] 40 mg PO QAM 12/03/17 11/11/23 History Ubidecarenone [Co Q-10] 400 mg PO QAM 12/03/17 11/11/23 History Vitamin E (Dl,Tocopheryl Acet) 1,000 unit PO QAM 12/03/17 11/11/23 History [Vitamin E (400 Iu = 180 mg)] Albuterol Inhaler [Ventolin Hfa 1 - 2 puff INHALATION RT-Q6H PRN 07/16/18 11/11/23 History Inhaler] Cetirizine HCl [Zyrtec] 10 mg PO QAM 05/01/23 11/11/23 History Fluticasone Propion/Salmeterol 1 puff INHALATION BID 05/01/23 11/11/23 History [Advair 500-50 Diskus] Irbesartan/Hydrochlorothiazide 1 each PO QAM 05/01/23 11/11/23 History [Irbesartan-Hctz 150-12.5 mg Tb] Magnesium 200 mg PO QAM 05/01/23 11/11/23 History Meclizine [Antivert] 25 mg PO DAILY PRN 05/01/23 11/11/23 History Metoprolol Succinate (ER) [Toprol 50 mg PO BID 05/01/23 11/11/23 History Xl] Montelukast [Singulair] 10 mg PO QAM 05/01/23 11/11/23 History Zinc Glycinate [Zinc Chelate] 50 mg PO QAM 05/01/23 11/11/23 History Omeprazole [PriLOSEC] 20 mg PO AC-BRKFST 06/03/23 11/11/23 History Ibuprofen [Motrin] 800 mg PO Q8H PRN #40 tab 06/12/23 11/11/23 Rx Allergies Allergy/AdvReac Type Severity Reaction Status Date / Time hydrocodone bitartrate AdvReac Nausea & Verified 11/11/23 07:44 [From Vicodin] Vomiting morphine AdvReac Nausea & Verified 11/11/23 07:44 Vomiting narcotic pain medication AdvReac Nausea & Uncoded 11/11/23 07:44 Vomiting Surgical - Exam Vital Signs Temp Pulse Resp BP Pulse Ox 97.3 F L 54 L 20 131/70 100 11/11/23 08:06 11/11/23 08:06 11/11/23 08:06 11/11/23 08:06 11/11/23 08:06 - General no distress, moderate pain - Eyes normal ocular movement, no pale - ENT normal nares, normal mucosa - Respiratory normal expansion, normal respiratory effort - Psychiatric oriented to time, oriented to person, oriented to place Assessment and Plan Assessment: OR for left-sided ureteroscopy, holmium laser lithotripsy, stone basketing and stent insertion
[2023-11-11] MEDS ORDERED: PROPOFOL 10 MG/ML 20 ML VIAL IV ONE (08:52)
[2023-11-11] MEDS ORDERED: ePHEDrine 50 MG/ML 1 ML VIAL ONE (08:52)
[2023-11-11] MEDS ORDERED: KETOROLAC 15 MG/ML 1 ML VIAL ONE (08:52)
[2023-11-11] MEDS ORDERED: MIDAZOLAM 2 MG/2 ML VIAL ONE (08:52)
[2023-11-11] MEDS ORDERED: SUCCINYLCHOLINE CHLORIDE 200 MG/10 ML VIAL IV ONE (08:52)
[2023-11-11] MEDS ORDERED: LIDOCAINE 4% LTA KIT (4 ML) TOPICAL ONE (08:52)
[2023-11-11] MEDS ORDERED: KETAMINE HCL IN 0.9 % NACL 50 MG/5 ML SYRINGE ONE (08:52)
[2023-11-11] MEDS ORDERED: LIDOCAINE 1% INJ 10MG/ML (20 ML MDV) ONE (08:52)
--- NOTE | 2023-11-11 09:57 | FL ---
Fluoroscopy INDICATION: Pain, lithotripsy, left-sided cystoscopy FINDINGS: Fluoroscopy time: 7 seconds. Total dose area product (DAP) in uGy*m?, mGy*cm? (or similar): 0.85654 Images obtained: 1. IMPRESSION: 1. Documentation of fluoroscopy.
--- NOTE | 2023-11-11 10:05 | P.OP ---
Date of Procedure: 11/11/23 Preoperative Diagnosis: Left renal stone Postoperative Diagnosis: Same Procedure(s) Performed: Cystoscopy, left ureteroscopy, holmium laser lithotripsy, stone basketing and stent insertion Implants: 6-Ghanaian by 26 cm stent in the left ureter Anesthesia: YOSSI Surgeon: Félix Llamas Estimated Blood Loss (ml): 5 Pathology: other (left renal stone) Condition: stable Disposition: PACU Indications for Procedure: This is a 68-year-old female history of left flank pain. Underwent a CT abdomen and pelvis that showed evidence of a 3 mm left-sided renal stone. Discussed the images with her discussed the stone is nonobstructive and there is potential this is not the cause of her pain, of note there is no other etiology to explain her pain. Discussed with her the option of stone removal, stone is radiolucent. Discussed option of left-sided ureteroscopy with holmium laser. Discussed the risk which includes but not limited to bleeding, infection, injury to ureter. Discussed potential that she might have persistent pain even stone removal. She understood all the risk and agreed to proceed Operative Findings: Two small left-sided renal stones in the midpole Description of Procedure: Patient brought to the operating room, general anesthesia was induced. She was prepped and draped in sterile fashion and placed in a dorsal lithotomy position. Cystoscopy fitted with 21-Ghanaian sheath was inserted per urethra, cystoscopy was performed which showed no abnormality within the bladder. Attention was then carried to the left ureteral orifice which was intubated with a sensor wire. Next under fluoroscopy 1113 Ghanaian access sheath was passed over the wire into the proximal ureter. Next a flexible ureteroscope was inserted through the access sheath, renoscopy was performed which showed 2 small stones in the lower pole. Using the holmium laser the stones were dusted, sizable fragments were removed and sent for analysis. Repeat renoscopy showed no sizable stones or injury to the kidney, pullback ureteroscopy was performed which showed no injury to the ureter or any ureteral stones, as ureteroscope was withdrawn and a sensor wire was advanced through. Next a ureteral stent was passed over the wire, the proximal curl was visualized on fluoroscopy and the distal curl was visualized using the cystoscope. Patient was awakened from anesthesia and taken to recovery in stable condition
[2023-11-11 10:48] VITALS: RESP 18
[2023-11-11 10:49] VITALS: BP 134/69; PULSE 62
== END 2023-11-11 11:08 | disposition home or self-care (01) ==
LOC: OR 06:54
PROVIDERS: ATTEND Urology
DX: N20.0 Calculus of kidney (principal); J45.909 Unspecified asthma, uncomplicated; K21.9 Gastro-esophageal reflux disease without esophagitis; E78.5 Hyperlipidemia, unspecified; I10 Essential (primary) hypertension; Z79.82 Long term (current) use of aspirin; Z79.899 Other long term (current) drug therapy; Z79.51 Long term (current) use of inhaled steroids
CPT/HCPCS: 52356; 82365; 74018; C2625; C1758; C1769; J2250; J0330; J1100; J0690; J2405; J2001; J1885; J2704

== ENCOUNTER → 2024-03-22 | Outpatient (CLI) | payer MEDICARE ==
[2024-03-22 16:04] LABS: BUN/Creat Ratio 18.57 Ratio (12.00-20.00); Calcium 9.4 mg/dL (8.7-10.3); Carbon Dioxide 26.3 mmol/L (21.6-31.8); Chloride 100 mmol/L (96-109); Glucose 103 mg/dL (70-110); Sodium 137 mmol/L (135-145)
[2024-03-22 16:32] LABS: Basophils # (A) 0.05 X 10*3/uL (0.00-0.10); Basophils % (A) 0.9 %; Eosinophils # (A) 0.18 X 10*3/uL (0.04-0.35); Eosinophils % (A) 3.2 %; HCT 43.3 % (37.2-46.3); HGB 14.2 g/dL (12.0-15.0); Lymphocytes # (A) 1.93 X 10*3/uL (0.90-5.00); Lymphocytes % (A) 34.8 %; MCH 29.2 pg (27.0-32.0); MCHC 32.8 g/dL (32.0-37.0); MCV 88.9 FL (80.0-97.0); Mean Platelet Volume 9.8 FL (9.5-12.2); Monocytes # (A) 0.46 X 10*3/uL (0.20-1.00); Monocytes % (A) 8.3 %; NRBC Per 100 WBC 0 X 10*3/uL (0.00-0.01); Neutrophils # (A) 2.91 X 10*3/uL (1.80-7.70); Neutrophils % (A) 52.6 %; Platelet Count 174 X 10*3/uL (140-440); RBC 4.87 X 10*6/uL (4.10-5.20); RDW 12.8 % (11.5-14.5); WBC 5.54 X 10*3/uL (4.50-10.00)
== END | disposition home or self-care (01) ==
LOC: LABPAT 09:18
PROVIDERS: ATTEND Orthopaedic Surgery
DX: Z01.818 Encounter for other preprocedural examination (principal); M17.12 Unilateral primary osteoarthritis, left knee; R00.1 Bradycardia, unspecified; Z22.322 Carrier or suspected carrier of Methicillin resistant Staphylococcus aureus
CPT/HCPCS: 36415; 80048; 85025; 87070; 93005

== ENCOUNTER 2024-04-12 08:13 | Day surgery (SDC) | payer MEDICARE ==
[2024-04-08 11:47] VITALS: BMI 27.6
--- NOTE | 2024-04-11 11:54 | HP ---
HISTORY AND PHYSICAL DATE OF SURGERY: 04/12/2024. HISTORY OF PRESENT ILLNESS: Jaja Vasquez is a 69-year-old patient, seen with symptomatic left knee osteoarthritis. We discussed options regarding treatment, shall proceed with left total knee arthroplasty. Consents obtained. PAST MEDICAL HISTORY: Asthma, hypertension, hyperlipidemia. PAST SURGICAL HISTORY: Foot surgery, hysterectomy. DAILY MEDICATIONS: Advair, albuterol, metoprolol, omeprazole, rosuvastatin. ALLERGIES: None. SOCIAL HISTORY: She denies current tobacco use. PHYSICAL EVALUATION OF THE LEFT KNEE: Range of motion is -2 to 115 degrees. Tenderness along the medial joint line. Crepitus, medial patellofemoral compartments with range of motion. Pain with patellofemoral compression. Ligaments stable. Hip rotation without pain. Distal neurovascular exam is intact. IMAGING STUDIES: Radiographs of the left knee reveal severe osteoarthritic changes. IMPRESSION: 1. Left knee osteoarthritis. 2. Hypertension. 3. Hyperlipidemia. 4. Asthma. PLAN: Left total knee arthroplasty. MMODL / IJN: [id number] /
[~2024-04-12 08:13] MED LIST changes: -DEXAMETHASONE SOD PHOSPHATE 4 MG/ML 1 ML VIAL IV ONE; -HYDROmorphone 0.5 MG/0.5 ML SYRINGE IVP PRN; -LACTATED RINGERS 1,000 ML IV SCH; -LIDOCAINE 1% (10MG/ML) FOR IV START INTRADERMA PRN; -MIDAZOLAM 2 MG/2 ML VIAL IV PRN; -ONDANSETRON 4 MG/2 ML VIAL IVP ONE; +TRANEXAMIC 1,000 MG/100ML-NACL 1,000 MG in SALINE 1 100ML.BAG IVPB PRN
[2024-04-12] MEDS ORDERED: LIDOCAINE 1% (10MG/ML) FOR IV START INTRADERMA PRN (08:25)
[2024-04-12] MEDS ORDERED: HYDROmorphone 0.5 MG/0.5 ML SYRINGE IVP PRN ×4 (08:25→11:49)
[2024-04-12] MEDS ORDERED: ONDANSETRON 4 MG/2 ML VIAL IVP PRN ×2 (08:25→11:49)
[2024-04-12] MEDS: ACETAMINOPHEN TAB 500 MG TAB PO PRN (08:34)
[2024-04-12] MEDS: MELOXICAM 7.5 MG TAB PO PRN (08:35)
[2024-04-12] MEDS: DEXAMETHASONE SOD PHOSPHATE 4 MG/ML 1 ML VIAL IV ONE (08:36)
[2024-04-12] MEDS: ONDANSETRON 4 MG/2 ML VIAL IVP ONE (08:36)
[2024-04-12] MEDS: LACTATED RINGERS 1,000 ML IV SCH ×2 (08:51→22:47)
[2024-04-12] MEDS: IV FLUID CONTINUATION 1,000 ML IV ONE ×2 (08:59→10:45)
[2024-04-12 09:18] LABS: INR 0.9 (<1.2); Prothrombin Time 10.4 sec (10.0-12.5)
[2024-04-12] MEDS: MIDAZOLAM 2 MG/2 ML VIAL IVP ONE (09:44)
[2024-04-12] MEDS ORDERED: TRANEXAMIC 1,000 MG/100ML-NACL PREMIX BAG ONE (10:04)
[2024-04-12] MEDS ORDERED: ROPIVACAINE 5 MG/ML 30 ML VIAL ONE (10:04)
[2024-04-12] MEDS ORDERED: SODIUM CHLORIDE 0.9% (PF) 10 ML VIAL ONE (10:04)
[2024-04-12] MEDS ORDERED: MIDAZOLAM 2 MG/2 ML VIAL ONE (10:04)
[2024-04-12] MEDS ORDERED: DEXAMETHASONE SOD PHOSPHATE 4 MG/ML 1 ML VIAL ONE (10:04)
[2024-04-12] MEDS ORDERED: PROPOFOL 10 MG/ML 20 ML VIAL IV ONE (10:04)
--- NOTE | 2024-04-12 11:48 | P.OP ---
Date of Procedure: 04/12/24 Preoperative Diagnosis: Left knee osteoarthritis Postoperative Diagnosis: Left knee osteoarthritis Procedure(s) Performed: Left total knee arthroplasty Implants: 1. DePuy attune size 6 left cruciate retaining cemented femur 2. DePuy attune size 5 fixed-bearing cemented tibial baseplate 3. DePuy attune size 6 fixed-bearing cruciate retaining 8 mm polyethylene tibial insert 4. DePuy attune 35 mm all polyethylene cemented patella Anesthesia: regional (Adductor canal catheter, iPAQ block), spinal Surgeon: Tony Doan Health Education Director #1: Mike Dailey Estimated Blood Loss (ml): 35 Pathology: none sent Condition: stable Disposition: PACU Indications for Procedure: 69-year-old patient seen with symptomatic left knee osteoarthritis. After having treatment options discussed, she elected to proceed with total knee arth roplasty. Operative Findings: See description of procedure Description of Procedure: Patient was taken to the operative suite after having an adductor canal catheter placed by the department of anesthesia. Patient underwent a spinal anesthetic by the department of anesthesia. Patient was given preoperative IV intake antibiotics and TXA. A well-padded tourniquet was placed about the left lower extremity. The lower extremity was then prepped and draped in the normal sterile orthopedic fashion. The extremity was elevated, a tourniquet was i nsufflated to 300. A standard anterior incision was made sharply through skin. Dissection was taken down through the subcutaneous soft tissues down to the extensor mechanism. A medial arthrotomy was performed, patella was everted and knee was flexed. There was advanced osteoarthritis noted. I introduced my distal intramedullary femoral drill. I then introduced the distal femoral cutting jig. Eliud RAY secured the cutting jig with 2 pins. I held retractors in position while Eliud RAY performed the distal femoral resection through the guide area we now removed her distal femoral cutting guide. We now placed our 4-in-1 femoral cutting block and positioned and it was secured with 2 pins by Eliud RAY while I held the block in position. The distal femoral finishing was now completed. A proximal tibial cutting guide was positioned. I held the guide in the appropriate position with both hands well Eliud RAY inserted stabilizing pins into the guide. Proximal tibial cut was made. We now placed a trial femoral component into position, along with an appropriate size tibial tray and insert. We now took the knee through range of motion and had full extension good flexion and good overall soft tissue balance noted. The patella was everted and stabilized with 2 towel clips held by Eliud RAY while I performed a flush with patellar quad tendon utilizing a fresh sawblade. We templated the patella, appropriate drill holes were made. An appropriate trial patella was positioned, knee was taken through full range of motion with the patella tracking very nicely. The trial patella was removed. Drill holes were made through the femoral component. All trial components were removed after marking off the appropriate rotation of the tibia. Retractors wer e now positioned along the proximal tibia. An appropriate keel punch was made with the appropriate size tibial guide by myself on Eliud RAY assisted by holding retractors. At this point appropriate size implants were chosen and opened. The joint was irrigated copiously with pulse lavage mechanical irrigation. The wound was irrigated with pulse lavage mechanical irrigation. We mixed antibiotic methylmethacrylate. We placed the knee into flexion. We placed multiple retractors assisted by Eliud RAY to expose the proximal tibia. Once the methyl methacrylate was ready, the tibial component was cemented into place removing any excess methylmethacrylate form by both myself and Eliud RAY. The femoral component was cemented into place removing the removing any excess methylmethacrylate performed by both myself and Eliud RAY. We then inserted the appropriate size polyethylene tibial insert. We made sure that it was locked into position. We took the knee into full extension, and then back in a flexion making sure we had removed any excess methylmethacrylate. The patellar component was then cemented down and secured with clamp. Excess methylmethacrylate removed. We kept the knee in full extension, patellar clamp in position until methylmethacrylate had hardened. Once it had hardened the patellar clamp was removed. The knee was taken through full range of motion. The patella tracked nicely. There was good soft tissue balancing. The tourniquet was now released. Additional hemostasis was achieved via electrocautery. A second gram of TXA was given. The wound again was irrigated with pulse lavage mechanical irrigation. The extensor mechanism was repaired with Ethibond suture. We checked the repair with range of motion and it was stable. The subcutaneous soft tissues were repaired with Vicryl in layers. The skin was approximated with pernio/Dermabond. Sterile dressings were applied followed by loose web roll and Benjamín bandage. The patient was transferred to a bed, and taken to recovery in stable and satisfactory condition. Eliud RAY assisted with this complex procedure.
[2024-04-12] MEDS ORDERED: HYDROcodone/APAP 7.5-325MG 1 EACH TAB PO PRN (11:49)
[2024-04-12] MEDS ORDERED: NALOXONE 0.4 MG/ML 1 ML VIAL IV PRN (11:49)
[2024-04-12] MEDS ORDERED: HYDROcodone/APAP 5-325MG 1 EACH TAB PO PRN (11:49)
[2024-04-12] MEDS: ROPIVACAINE 1,100 MG, SODIUM CHLORIDE 0.9% 500 ML 330 ML, EMPTY PAIN BALL 1 EACH MISCELLANE PRN (12:31)
--- NOTE | 2024-04-12 13:29 | P.ANPRN ---
Procedure Note - Anesthesia - Nerve Block Performed Left Adductor Canal Infusion Time Out Performed: Yes Date of Procedure: 04/12/24 Procedure Start Time: 09:44 Procedure Stop Time: 09:58 Location of Patient: PreOp Indication: Acute Post-Operative Pain, Requested by Surgeon Sedation Type: Sedate with meaningful contact maintained Preparation: Sterile Prep, Sterile Dressing Position: Supine Catheter: Indwelling Needle Types: Pajunk Needle Gauge: 21 Ultrasound used to visualize needle placement: Yes Ultrasound used to observe medication spread: Yes Blood Aspirated: No Pain Paresthesia on Injection Noted: No Resistance on Injection: Normal Image Stored and Saved: Yes Events: Uneventful and Well Tolerated (Ropivacaine 0.5% 20 cc plus dexamethasone 4 mg)
--- NOTE | 2024-04-12 13:32 | P.ANPRN ---
Procedure Note - Anesthesia - Nerve Block Performed Left iPack Single Time Out Performed: Yes Date of Procedure: 04/12/24 Procedure Start Time: 09:59 Procedure Stop Time: 10:02 Location of Patient: PreOp Indication: Acute Post-Operative Pain, Requested by Surgeon Sedation Type: Sedate with meaningful contact maintained Preparation: Sterile Prep Position: Supine Needle Types: Pajunk Needle Gauge: 21 Ultrasound used to visualize needle placement: Yes Ultrasound used to observe medication spread: Yes Blood Aspirated: No Pain Paresthesia on Injection Noted: No Resistance on Injection: Normal Image Stored and Saved: Yes Events: Uneventful and Well Tolerated (Ropivacaine 0.5% 25 cc plus dexamethasone 4 mg)
--- NOTE | 2024-04-12 13:33 | XR ---
EXAMINATION TYPE: XR knee limited LT DATE OF EXAM: 04/12/2024 COMPARISON: NONE HISTORY: 69-year-old female evaluation for postoperative abnormality and alignment TECHNIQUE: 2 views FINDINGS: Anterior soft tissue swelling with scattered soft tissue air as well as intra-articular air related to recent operation. Images show placement of left total knee arthroplasty. Both distal femo ral and proximal tibial components of the prosthesis are well seated without periprosthetic fracture. Alignment grossly anatomic. IMPRESSION: Uncomplicated postoperative appearance left total knee arthroplasty.
[2024-04-12] MEDS: ENOXAPARIN 30 MG/0.3 ML SYRINGE SQ SCH (21:14)
[2024-04-12] MEDS: SENNOSIDES-DOCUSATE SODIUM 1 EACH TAB PO SCH (21:15)
[2024-04-12] MEDS ORDERED: ALBUTEROL NEBULIZED 2.5 MG/3 ML INHALATION PRN (21:48)
[2024-04-12] MEDS: METOPROLOL SUCCINATE (ER) 50 MG TAB.ER.24H PO SCH (22:44)
[2024-04-12] MEDS: traMADol 50 MG TAB PO SCH (22:44)
[2024-04-13] MEDS: IBUPROFEN 800 MG TAB PO PRN (02:24)
--- NOTE | 2024-04-13 07:51 | P.PN ---
Progress Note - Text Progress Note Date: 04/13/24 Anesthesiology Postop day 1 status post total knee arthroplasty with adductor canal catheter. Patient doing well. VAS 4 out of 10. Gross strength intact in lower extremity. Afebrile. Denies alterations in sensorium. Catheter site intact. Heart regular rate Lungs nonlabored Abdomen nondistended Assessment: Postop day 1 status post total knee arthroplasty with adductor canal catheter Plan: 1.All questions answered. Maintain catheter 2 more days with patient removal at home. Instructions to be given at discharge. 2.This note was dictated using [employer] software. Please be advised there is a potential for misspellings or errors in barber apprentice.
[2024-04-13] MEDS: PANTOPRAZOLE 40 MG TABLET PO SCH (07:54)
[2024-04-13] MEDS: ATORVASTATIN 80 MG TAB PO SCH (07:55)
[2024-04-13] MEDS: MAGNESIUM OXIDE 400 MG TAB PO SCH (07:55)
[2024-04-13] MEDS: MONTELUKAST 10 MG TAB PO SCH (07:55)
[2024-04-13] MEDS: LORATADINE 10 MG TAB PO SCH (07:56)
[2024-04-13] MEDS: CHOLECALCIFEROL 25 MCG (1000 IU) TABLET PO SCH (07:56)
[2024-04-13] MEDS: ZINC SULFATE 220 MG CAP PO SCH (07:56)
[2024-04-13 07:57] VITALS: BP 143/77; PULSE 58; RESP 18; TEMP 97.5
[2024-04-13] MEDS: VITAMIN E (DL,TOCOPHERYL ACET) 400 UNIT (180 MG) CAP PO SCH (07:57)
[2024-04-13] MEDS: LOSARTAN-HCTZ 50-12.5 MG 1 EACH TAB PO SCH (07:58)
[2024-04-13 08:29] LABS: Basophils # (A) 0.01 X 10*3/uL (0.00-0.10); Basophils % (A) 0.1 %; Eosinophils # (A) 0 X 10*3/uL (0.04-0.35); Eosinophils % (A) 0 %; HCT 38.2 % (37.2-46.3); HGB 12.3 g/dL (12.0-15.0); Lymphocytes # (A) 1.13 X 10*3/uL (0.90-5.00); Lymphocytes % (A) 10.6 %; MCHC 32.2 g/dL (32.0-37.0); MCV 90.1 FL (80.0-97.0); Mean Platelet Volume 10.1 FL (9.5-12.2); Monocytes # (A) 0.61 X 10*3/uL (0.20-1.00); Monocytes % (A) 5.7 %; NRBC Per 100 WBC 0 X 10*3/uL (0.00-0.01); Neutrophils # (A) 8.87 X 10*3/uL (1.80-7.70); Neutrophils % (A) 83.2 %; Platelet Count 191 X 10*3/uL (140-440); RBC 4.24 X 10*6/uL (4.10-5.20); RDW 12.4 % (11.5-14.5); WBC 10.66 X 10*3/uL (4.50-10.00)
[2024-04-13] MEDS ORDERED: NON FORMULARY DRUG (Ubidecarenone [Co Q-10] 100 MG Capsule) PO SCH (09:00)
[2024-04-13] MEDS: SYMBICORT 160-4.5 MCG INHALER INHALATION SCH (09:00)
--- NOTE | 2024-04-13 10:33 | P.PN ---
Subjective Progress Note Date: 04/13/24 Principal diagnosis: Status post left total knee arthroplasty Patient was evaluated today at bedside, she is resting in her hospital chair. Patient has been up and ambulating with physical therapy, she did utilize the stairs. She states that the pain medication is working well, we are utilizing tramadol 50 mg. She denies any headaches, lightheadedness, chest pain or shortness of breath. She has been urinating with no issues since the surgery. Objective - Vital Signs Vital signs: Vital Signs Temp 97.5 F L 04/13/24 07:20 Pulse 58 L 04/13/24 07:20 Resp 18 04/13/24 07:20 BP 143/77 04/13/24 07:20 Pulse Ox 96 04/13/24 07:20 FiO2 Intake & Output 04/12/24 04/13/24 04/13/24 18:59 06:59 18:59 Intake Total 1750 1400 120 Output Total 35 300 Balance 1715 1100 120 Weight 82.9 kg 82.9 kg Intake: IV 1750 Intake, IV Titration 1160 Amount Lactated Ringers 1,000 ml 960 @ 80 mls/hr IV .[id number] DAMIAN Rx#:[id number] ceFAZolin 2 gm In Sodium 200 Chloride 0.9% 50 ml @ 100 mls/hr IVPB Q8H DAMIAN Rx#: [id number] Oral 240 120 Output: Urine 300 Estimated Blood Loss 35 Other: Voiding Method Toilet Toilet # Voids 1 3 - Exam Left lower extremity: Incision is clean, dry, and intact. The foam dressing is in good condition. There is minimal soft tissue swelling and ecchymosis surrounding the medial and lateral aspects of the incision. Calf is soft, no tenderness with palpation. Plantar flexion, dorsiflexion, EHL, FHL are intact. Sensory exam to light touch throughout the extremity is intact, dorsal pedis pulses 2+. - Labs CBC & Chem 7: 04/13/24 03:17 Labs: Abnormal Lab Results - Last 24 Hours (Table) 04/13/24 Range/Units 03:17 WBC 10.66 H (4.50-10.00) X 10*3/uL Neutrophils # 8.87 H (1.80-7.70) X 10*3/uL Eosinophils # 0 L (0.04-0.35) X 10*3/uL Assessment and Plan Assessment: Postoperative day #1 status post left total knee arthroplasty Plan: Pain control, plan for discharge home on tramadol 50 mg DVT prophylaxis, aspirin 81 mg twice a day for 30 days Wound care instructions discussed, this to include icing and elevating, showering On-Q pain catheter discontinuation and showering instructions were discussed Weight-bear as tolerated, recommend use of the walker/cane Home health care, this to include both nursing and therapy at discharge Medical recommendations appreciated Discharge planning: Patient stable for discharge home today Time with Patient: Less than 30
--- NOTE | 2024-04-13 10:38 | P.DS ---
Providers Date of admission: 04/12/2024 Expected date of discharge: 04/13/24 Attending physician: Tony Doan Consults: 04/12/24 11:49 Consult Physician Routine Consulting Provider: Sridevi Retana Consult Reason/Comments: Medical management Do you want consulting provider notified?: Yes Primary care physician: Kevin Julio MD Hospital Course: Date of admission: 04/12/2024 Date of discharge: 04/13/2024 Admission diagnosis: Status post left total knee arthroplasty Discharge diagnosis: Same Attending physician: Dr. Doan Surgical procedures: Left total knee arthroplasty Brief history: Patient is a 69-year-old female with a history of progressive primary left knee osteoarthritis. At this point patient has failed conservative treatment measures and has opted to proceed with a elective left total knee arthroplasty. Hospital course: Details of patient's surgery can be found in operative report. Patient tolerated the procedure well and was subsequently transported to orthopedic floor. Patient's orthopeidc and medical care was provided daily. Patient had daily laboratory tests performed for evaluation of overall blood counts. Patient had daily physical therapy to include strengthening range of motion as well as education with walker ambulation. Patient was treated with Lovenox for their postoperative DVT prophylaxis during their inpatient stay. Patient was noted to have a relatively uneventful postoperative course. Patient reported satisfactory pain control with oral pain medications by postoperative day 0. Patient showed satisfactory progress with physical therapy. Patient moved steadily through the program and had no difficulty meeting the goals by postoperative day 1. Given patient's otherwise satisfactory course and having met physical therapy goals, plan is to discharge patient home on postoperative day 1. Discharge condition/disposition: Patient will be discharged home in stable condition. Discharge medications: Instructions are given on resumption of patient's normal daily medications per primary care recommendation, in addition patient will be prescribed tramadol 50 mg, senna S, ibuprofen 800 mg, aspirin 81 mg. Discharge instructions: 1. Wound care and infection precautions, keep incision dry and covered while showering, no lotions, creams, moisturizers. No soaking, tubs, pools, hottubs. Do not scrub over the incision. 2. Weight-bear as tolerated with walker / cane until follow-up. 3. Ice and elevate when necessary. Do not exceed 20 minutes per hour with ice pack. 4. Utilize compression sleeve until seen at first follow up appointment. 5. Visiting nursing care. 6. Home physical therapy including home CPM. 7. Pain meds and anticoagulants per prescription. 8. Pain medication has potential to cause constipation. Increase oral fluid and fiber intake. Contact primary care provider if you have not had a bowel movement within 48 hours after discharge 9. No anti-inflammatory medication until discussed at first post operative visit, this including Motrin, Aleve, Mobic, Diclofenac. 10. Follow up in office at 2 weeks postop with Eliud Dailey PA-C/Shahzad Carrion 11. Follow up with your primary care doctor 7-10 days after discharge. 12. Contact [facility] with any questions, . Procedures: Left total knee arthroplasty Patient Condition at Discharge: Good Plan - Discharge Summary Discharge Rx Participant: No New Discharge Prescriptions: New Aspirin [Adult Low Dose Aspirin EC] 81 mg PO BID #60 tab Ibuprofen [Motrin] 800 mg PO Q8H PRN #40 tab PRN Reason: Pain traMADol HCl [Ultram] 50 mg PO Q6H PRN #28 tab PRN Reason: Pain Sennosides/Docusate Sodium [Senna-S 8.6-50 mg Tablet] 2 each PO DAILY PRN #30 tablet PRN Reason: Constipation Discontinued Ibuprofen [Motrin] 800 mg PO Q8H PRN #40 tab PRN Reason: Pain No Action Aspirin 81 mg PO QAM Cholecalciferol [Vitamin D3 (25 Mcg = 1000 Iu)] 2,000 unit PO QAM Rosuvastatin Calcium [Crestor] 40 mg PO QAM Vitamin E (Dl,Tocopheryl Acet) [Vitamin E (400 Iu = 180 mg)] 1,000 unit PO QAM Ubidecarenone [Co Q-10] 400 mg PO QAM Albuterol Inhaler [Ventolin Hfa Inhaler] 1 - 2 puff INHALATION RT-Q6H PRN PRN Reason: Dyspnea Montelukast [Singulair] 10 mg PO QAM Fluticasone Propion/Salmeterol [Advair 500-50 Diskus] 1 puff INHALATION BID Cetirizine HCl [Zyrtec] 10 mg PO QAM Magnesium 200 mg PO QAM Irbesartan/Hydrochlorothiazide [Irbesartan-Hctz 150-12.5 mg Tb] 1 each PO QAM Omeprazole [PriLOSEC] 20 mg PO AC-BRKFST Metoprolol Succinate (ER) [Toprol Xl] 50 mg PO BID Zinc Glycinate [Zinc Chelate] 50 mg PO QAM Meclizine [Antivert] 25 mg PO DAILY PRN PRN Reason: DIZZINESS Discharge Medication List Aspirin 81 mg PO QAM 11/23/14 [History] Cholecalciferol [Vitamin D3 (25 Mcg = 1000 Iu)] 2,000 unit PO QAM 12/03/17 [History] Rosuvastatin Calcium [Crestor] 40 mg PO QAM 12/03/17 [History] Ubidecarenone [Co Q-10] 400 mg PO QAM 12/03/17 [History] Vitamin E (Dl,Tocopheryl Acet) [Vitamin E (400 Iu = 180 mg)] 1,000 unit PO QAM 12/03/17 [History] Albuterol Inhaler [Ventolin Hfa Inhaler] 1 - 2 puff INHALATION RT-Q6H PRN 07/16/18 [History] Cetirizine HCl [Zyrtec] 10 mg PO QAM 05/01/23 [History] Fluticasone Propion/Salmeterol [Advair 500-50 Diskus] 1 puff INHALATION BID 05/01/23 [History] Irbesartan/Hydrochlorothiazide [Irbesartan-Hctz 150-12.5 mg Tb] 1 each PO QAM 05/01/23 [History] Magnesium 200 mg PO QAM 05/01/23 [History] Meclizine [Antivert] 25 mg PO DAILY PRN 05/01/23 [History] Metoprolol Succinate (ER) [Toprol Xl] 50 mg PO BID 05/01/23 [History] Montelukast [Singulair] 10 mg PO QAM 05/01/23 [History] Zinc Glycinate [Zinc Chelate] 50 mg PO QAM 05/01/23 [History] Omeprazole [PriLOSEC] 20 mg PO AC-BRKFST 06/03/23 [History] Aspirin [Adult Low Dose Aspirin EC] 81 mg PO BID #60 tab 04/13/24 [Rx] Ibuprofen [Motrin] 800 mg PO Q8H PRN #40 tab 04/13/24 [Rx] Sennosides/Docusate Sodium [Senna-S 8.6-50 mg Tablet] 2 each PO DAILY PRN #30 tablet 04/13/24 [Rx] traMADol HCl [Ultram] 50 mg PO Q6H PRN #28 tab 04/13/24 [Rx] Follow up Appointment(s)/Referral(s): Mike Dailey PAC [PHYSICIAN [employer]] - 04/27/24 10:00 am (with Franki) Activity/Diet/Wound Care/Special Instructions: Orthopedic Discharge Instructions: 1. Wound care and infection precautions, keep incision dry and covered while showering, no lotions, creams, moisturizers. No soaking, pools, hot tubs. Do not scrub over incision. 2. Weight-bear as tolerated with walker / cane until follow-up. 3. Ice and elevate when necessary. Do not exceed 20 minutes per hour with ice pack. 4. Utilize compression sleeve until seen at first follow up appointment. 5. Pain meds and anticoagulants per prescription. 6. Pain medication has potential to cause constipation. Increase oral fluid and fiber intake. Contact primary care provider if you have not had a bowel movement within 48 hours after discharge. 7. No anti-inflammatory medication until discussed at first post operative visit, this including Motrin, Aleve, Mobic, Diclofenac. 8. Follow up in office at 2 weeks postop with Eliud Dailey PA-C/Shahzad Shearer PA-C 9. Follow up with your primary care doctor 7-10 days after discharge. 10. Contact [facility] with any questions, . Wound care instructions: 1. Okay to discontinue use of the bandage as of 04/19/2024 2. Okay to shower directly over the incision after removal of the dressing Discharge Disposition: HOME WITH HOME HEALTH SERVICES
[2024-04-13] MEDS ORDERED: MULTIVITAMINS, THERA 1 EACH TAB PO SCH (12:00)
--- NOTE | 2024-04-13 12:45 | CONS ---
CONSULTATION REASON FOR CONSULTATION: Advice regarding hypertension, other medical issues, requested by Orthopedic Surgery. HISTORY OF PRESENT ILLNESS: This is a 69-year-old woman with a past medical history of multiple medical problems including hypertension, underwent left knee arthroplasty. There is no history of any fever, rigors, or chills. The patient is complaining of some left knee pain postoperatively. The patient also had blood pressure somewhat fluctuating, systolic blood pressure going up to 160. There is no history of any fever, rigors, chills, chest pain, or palpitations at this time. PAST MEDICAL HISTORY: Reviewed include hypertension. HOME MEDICATIONS: Reviewed include metoprolol, dose and rest of medications reviewed. ALLERGIES: Reviewed include Vicodin. FAMILY HISTORY: History of CAD. SOCIAL HISTORY: Previous history of smoking. REVIEW OF SYSTEMS: A 14-point review of systems is negative except as mentioned in HPI. PHYSICAL EXAMINATION: VITAL SIGNS: Pulse is 58, blood pressure 143/77, respirations 18. HEENT: Conjunctivae normal. CARDIOVASCULAR: S1, S2. RESPIRATIONS: Clear to auscultation. ABDOMEN: Soft, nontender. LEGS: Status post left knee arthroplasty, some minimal swelling around the knee present. NERVOUS SYSTEM: No focal deficits. SKIN: No ulcer, rash, or bleeding. LABORATORY DATA: WBC 10.66. ASSESSMENT: 1. Status post left total knee arthroplasty. 2. Hypertension, labile. 3. History of asthma. 4. History of hyperlipidemia. 5. Multiple medical issues. RECOMMENDATIONS AND DISCUSSION: This 69-year-old woman presented with multiple complex medical issues. I would recommend to continue the current regimen of hypertension, antihypertensive medications, and monitor the blood pressure at least twice daily and follow up with Dr. Patel as an outpatient setting. Rest of the recommendations per Orthopedic Surgery. MMODL / IJN: [id number] /
== END 2024-04-13 12:06 | disposition home health service (06) ==
LOC: OR 08:13 → 4SSUR 12:03 → OR 04-13 12:06
PROVIDERS: ATTEND Orthopaedic Surgery
DX: M17.12 Unilateral primary osteoarthritis, left knee (principal); E78.5 Hyperlipidemia, unspecified; G89.18 Other acute postprocedural pain; I10 Essential (primary) hypertension; J45.909 Unspecified asthma, uncomplicated; K21.9 Gastro-esophageal reflux disease without esophagitis; Z87.891 Personal history of nicotine dependence; Z88.5 Allergy status to narcotic agent; Z90.710 Acquired absence of both cervix and uterus; Z79.82 Long term (current) use of aspirin; Z79.1 Long term (current) use of non-steroidal anti-inflammatories (NSAID); Z79.51 Long term (current) use of inhaled steroids; Z79.899 Other long term (current) drug therapy
CPT/HCPCS: 27447; 97161; 64999; 64448; 85025; 85610; 73560; C1776; C1713 ×2; C1751; J2250; J1100; J0690 ×2; J2405; J1650; J2795; J2704

== ENCOUNTER → 2024-11-02 | Outpatient (CLI) | payer MEDICARE | LOC: CPPFTMAIN 07:14 | PROVIDERS: ATTEND Internal Medicine Critical Care Medicine | DX: J44.9 Chronic obstructive pulmonary disease, unspecified (principal); Z88.5 Allergy status to narcotic agent; Z88.8 Allergy status to other drugs, medicaments and biological substances; Z87.891 Personal history of nicotine dependence | CPT/HCPCS: 94060; 94726; 94729 ==